=== PATIENT | female | born 1980 | race Caucasian/White ===

== ENCOUNTER 2018-03-23 11:17 | Outpatient (CLI) | payer BC ==
[2018-03-23 12:43] LABS: Hemoglobin 14.4 g/dL (12.0-16.0); Mean Corpuscular HGB CONC 33.7 g/dL (32.0-36.0); Mean Corpuscular Hemoglobin 29.6 pg (27.0-31.0); Mean Corpuscular Volume 87.9 fL (78.0-98.0); Mean Platelet Volume 7.6 fL (7.4-10.4); Platelet Count 201 thou/uL (130-400); RBC Distribution Width 12.2 % (11.5-14.5); Red Blood Cell (RBC) Count 4.87 mill/uL (4.20-5.40); White Blood Cell (WBC) Count 6.9 thou/uL (4.8-10.8)
[2018-03-23 13:24] LABS: BHCG - Serum Negative (NEGATIVE); Pregs Control Background? CLEAR/WHITE (CLR/WHITE); Pregs Control Bar Appear? YES (CONTROL BAR)
== END 2018-03-23 11:18 | disposition home or self-care (01) ==
LOC: LABBT 11:17
PROVIDERS: ATTEND Obstetrics & Gynecology
DX: Z01.812 Encounter for preprocedural laboratory examination (principal); N92.0 Excessive and frequent menstruation with regular cycle; N94.6 Dysmenorrhea, unspecified; D25.9 Leiomyoma of uterus, unspecified
CPT/HCPCS: 84703; 85027; 86850; 86900; 86901

== ENCOUNTER 2018-03-23 11:30 | Observation (INO) | payer BC ==
--- NOTE | 2018-03-22 17:15 | HP ---
DATE OF SCHEDULED SURGERY: 03/24/2018 HISTORY OF PRESENT ILLNESS: Ms. Salgado is a 37-year-old white female who has had 2 previous sections and tubal ligation, who has been experiencing very heavy menstrual cycles. She saturates M axi pad in 1 hour during her flow, which can be throughout 7 days that are heavy. She has tried Lyst jorgito with not much improvement. She is taking iron supplement at the time of menses. She also has si gnificant history of pulmonary embolism on oral contraceptives, so this is not a therapeutic option f or her. She is desiring definitive surgical therapy. PAST MEDICAL HISTORY: As noted, pulmonary embolism, on oral contraceptive in the past. She has had previous laparoscopy, infertility and D and C in 2010. 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 She also has history of previous VSD as a child, which resolved. ALLERGIES: CODEINE DERIVATIVES. SOCIAL HISTORY: No tobacco use, nonsmoker. Minimal alcohol consumption. She is . FAMILY HISTORY: Essential hypertension and hyperlipidemia in her father, diabetes in her mother. PHYSICAL EXAMINATION: VITAL SIGNS: Her blood pressure is 134/82, pulse 84 and regular, respirations 16, height 66 inches, weight is 216 with a BMI of 34.9. HEENT: Within normal limits. CHEST: Clear to auscultation. HEART: Regular rate and rhythm. S1, S2 heart sounds. No murmurs, rubs or gallops. ABDOMEN: Soft, nontender, nondistended with no palpable masses. Well-healed Pfannenstiel incision s ite noted. PELVIC: Vulva and vagina had no lesions. Cervix had no lesions. Pap smear performed on 01/05/2018 was negative and HPV was also negative for high risk viruses. Uterus was approximately 8 to 10 weeks size. Adnexa were nontender with no masses. Pelvic ultrasound previously performed showed uterus m easuring 9 x 5.5 cm with anterior fibroid measuring 3.3 x 3 cm. Endometrial lining was 11.8 mm. No adnexal masses were noted. ASSESSMENT: This is a 37-year-old white female, G3, P3, with prior C-sections x2 and tubal ligation, who was having menorrhagia unresponsive to medical management including Lysteda, known uterine fibro ids. She is desiring definitive surgical therapy. She is scheduled to undergo robotic total laparos copic hysterectomy with removal of the residual fallopian tube segments on 03/24/2018. Risks and albina efits of the procedure were discussed in detail. She is set for surgery.
[2018-03-23 11:37] VITALS: BMI 34.7
[2018-03-24] MEDS ORDERED: CEFAZOLIN/Water 2 GM/20 ML SYRINGE ONE (06:08)
[2018-03-24] MEDS ORDERED: Famotidine/PF 20 mg/2ml Vial ONE (06:09)
[2018-03-24] MEDS ORDERED: Famotidine 40 MG/4 ML VIAL IV SCH (06:15)
[2018-03-24] MEDS ORDERED: CeleCOXIB 100 MG CAP PO SCH (06:15)
[2018-03-24] MEDS ORDERED: Gabapentin 300 MG CAP ONE (06:15)
[2018-03-24] MEDS ORDERED: Lidocaine 2% Jelly 5 ML TUBE ONE (06:18)
[2018-03-24] MEDS ORDERED: Fentanyl 250 MCG/5 ML VIAL ONE (06:18)
[2018-03-24] MEDS ORDERED: Midazolam HCl 2 mg/2 ml Vial ONE (06:18)
[2018-03-24] MEDS ORDERED: Bupivacaine HCl 0.5%/Epinephrine 1:200,000/PF 30 ml Vial ONE (06:29)
[2018-03-24] MEDS ORDERED: Sodium Chloride 0.9% 0 ML ONE (06:45)
[2018-03-24] MEDS ORDERED: Levofloxacin 500 mg/D5W 100 ml Premix Bag ONE (06:45)
[2018-03-24] MEDS ORDERED: Scopolamine 1.5 mg/72 hour Patch ONE (06:46)
[2018-03-24] MEDS ORDERED: HYDROmorphone 2 MG/ML VIAL SLOW IVP PRN (08:02)
[2018-03-24] MEDS ORDERED: Promethazine HCl 25 MG/ML VIAL IM PRN ×2 (08:02→10:58)
[2018-03-24] MEDS ORDERED: Ondansetron HCl/PF 4 MG/2 ML Vial IVP PRN ×2 (08:02→10:58)
[2018-03-24] MEDS ORDERED: Promethazine HCl 25 MG/ML VIAL SLOW IVP PRN (08:02)
[2018-03-24] MEDS ORDERED: Fentanyl 100 MCG/2 ML VIAL ONE ×2 (09:30→10:11)
--- NOTE | 2018-03-24 10:22 | OP ---
DATE OF PROCEDURE: 03/24/2018 PREOPERATIVE DIAGNOSES: 1. A 37-year-old white female, A1, with prior x2 and tubal ligation with menorrhagia and dysmenorrhea, unresponsive to medical management. 2. Uterine fibroids. 3. Desires definitive surgical therapy. POSTOPERATIVE DIAGNOSES: 1. A 37-year-old white female, A1, with prior x2 and tubal ligation with menorrhagia and dysmenorrhea, unresponsive, medical management. 2. Uterine fibroids. 3. Desires definitive surgical therapy. PROCEDURE PERFORMED: Robotic total laparoscopic hysterectomy and removal residual fallopian tube seg ments. SURGEON: Irma Roldan M.D. RANGE MANAGER: Kadi Shelton M.D. ANESTHESIA: General endotracheal. ESTIMATED BLOOD LOSS: Less than 50 mL. COMPLICATIONS: None. COUNTS: Correct x2. ANTIBIOTICS: Two grams Ancef power generation engineer to the operating room. PATHOLOGY: Uterus, cervix, and bilateral tubal segments. FINDINGS: 1. Normal appearing bilateral ovaries and residual tubal segments. 2. Eight week size uterus with small uterine fibroids noted intramural. 3. Bladder was watertight to fluid distention of over 300 mL post-procedure. 4. Bilateral ureteral peristalsis visualized post procedure. DISPOSITION: To the recovery room stable. DESCRIPTION OF OPERATIVE PROCEDURE: The patient previously received informed consent in regards to pasquale high. She was taken back to the operating room where she received a general endotracheal anestheti c agent without complications. She was placed in the dorsal lithotomy position with the use of Jose stirrups and draped in usual sterile fashion. Gerard catheter was placed. A sidearm speculum was pl aced in the vagina. Anterior lip of cervix was grasped with a single-tooth tenaculum. Uterus sounde d to 9 cm. A size 8 cm SANJEEV uterine manipulator with a 4.0 cm cervical cup was then placed. The ten aculum and speculum were removed. Attention was then turned to the abdomen where perspective trocar sites were infiltrated with 0.5% Marcaine with epinephrine. A 12 mm supraumbilical incision was made . Veress needle was entered the peritoneal cavity. Patient pressure was noted to be less than 5 mm. Abdomen was insufflated to a patient pressure of 15, approximately 4-1/2 liters of carbon dioxide g as. Veress needle was then removed. A size 12 mm trocar was then placed in the supraumbilical incis ion and then the robotic laparoscope was introduced through the trocar sleeve confirming proper entry . Additional bilateral lower quadrant 8 mm robotic trocars were placed under laparoscopic guidance a long with a right upper quadrant 11 mm restaurant assistant port. The patient was placed in deep Trendelenburg position and then the robot was docked in usual fashion. I then broke scrub and proceeded to carry o ut the surgery from the operative console were my assistants remained at the bedside. The uterus was elevated from the pelvis by my restaurant assistant. The left fallopian tube fimbriated end was grasped by my restaurant assistant with an atraumatic grasper. I then coagulated under the mesosalpinx of the tubal segment w ith bipolar fenestrated cautery and then this was excised with monopolar scissors. The tubal segment was removed to the upper quadrant restaurant assistant port. The left uterine ovarian ligament was isolated, w as coagulated with bipolar fenestrated cautery, was transected with monopolar scissors. Serial coagu lation of broad ligament, hugging close uterine specimen was carried out until the left round ligamen t was reached. It was coagulated and then transected with monopolar scissors. The anterior leaf of the broad ligament was entered and the vesicouterine peritoneum was then incised in a layering techni que under direct visualization dropping the bladder atraumatically past the cervical vaginal cuff whi ch was easily recognizable by the indentation of the cervical cup manipulator. The left uterine vess els were skeletonized and then coagulated in the internal cervical os region. This was then carried out again on similar fashion on the patient's right side of the uterus where the fimbriated end of th e right tube was grasped and elevated by the restaurant assistant. It was coagulated in the mesosalpinx region with bipolar fenestrated cautery and tubal segment was excised and removed. The right uteroovarian l igament was coagulated and transected. Serial coagulation of broad ligament, hugging close to uterus again was coagulated and transected again until the right round ligament was reached. It was coagul ated and transected with monopolar scissors. Again, in a layering technique the vesicouterine perito neum of the bladder was then incised atraumatically, dropping the bladder, both sharply and bluntly p ast the cervical vaginal cuff. Intermittently, the bladder was distended by my restaurant assistant via the Fol ey catheter to ascertain the exact position of the bladder to keep this atraumatically from the surgi mehran dissection. Again, the uterine vessels on the right side were skeletonized and coagulated actuarial internship al cervical os region. Prior to the anterior colpotomy, the bladder again was distended and noted to be well past the intended anterior colpotomy incision site. The monopolar scissors were then utiliz ed to complete the anterior colpotomy from the 12 to 3 and 12 to 9 o'clock position. Again, the vess els at the 3 and 9 o'clock position were bipolar fenestrated cauterized and then a posterior colpotom y was completed from 6-9 and 6-3 in likewise fashion. The uterine specimen was then delivered in the vaginal vault. The vaginal cuff was then coagulated any remaining active bleeding with the bipolar fenestrated cautery. The monopolar scissor was switched for omega needle wrecking car driver. My restaurant assistant passe d a Stratafix suture through the restaurant assistant port and the vaginal cuff was then closed in full thicknes s closure starting at the right angle, incorporating back towards the left angle back towards the mid line with good hemostasis noted. The excess suture and needle was then cut and then removed intact. The pelvis again at this time, was irrigated and suctioned. All pedicle sites were inspected. Hemo stasis was confirmed. The bladder was noted to be watertight again, over 300 mL distension. Bilater al ureteral peristalsis was visualized and the ureter was below the operative sites noted. The exces s carbon dioxide gas was then released from the abdomen after the robot had been undocked. The troca r sleeves were removed. A deep stitch of 0 Vicryl in a bczjca-cd-yexsu stitch fashion was placed in the umbilical fascia closing the defect and the remainder of the trocar sites were closed with 4-0 Mo nocryl suture in subcuticular fashion with Dermabond. The vaginal vault was checked with a sponge st ick and hemostasis vaginal cuff vaginally was confirmed. The patient was awakened from anesthesia an d transferred to recovery in stable condition.
[2018-03-24] MEDS ORDERED: Simethicone Chewable 80 MG TAB PO PRN (10:58)
[2018-03-24] MEDS ORDERED: Bisacodyl 10 MG SUPP PR PRN (10:58)
[2018-03-24] MEDS ORDERED: diphenhydrAMINE 25 MG CAP PO PRN (10:58)
[2018-03-24] MEDS ORDERED: Zolpidem Tartrate 5 MG TAB PO PRN (10:58)
[2018-03-24] MEDS ORDERED: Morphine 10 MG/ML VIAL SLOW IVP PRN (10:58)
[2018-03-24] MEDS ORDERED: traMADol HCl 50 MG TAB PO PRN (10:58)
[2018-03-24] MEDS ORDERED: Glycopyrrolate 0.2 MG/ML 5 ML SYRINGE ONE (11:21)
[2018-03-24] MEDS ORDERED: Dexamethasone 20 MG/5 ML VIAL ONE (11:21)
[2018-03-24] MEDS ORDERED: Lidocaine 1% PF 5 ML VIAL ONE (11:21)
[2018-03-24] MEDS ORDERED: Ondansetron HCl/PF 4 MG/2 ML Vial ONE (11:21)
[2018-03-24] MEDS ORDERED: PROPOFOL 200 MG/20 ML VIAL ONE (11:21)
[2018-03-24] MEDS: traMADol HCl 50 MG TAB PO PRN (15:00)
[2018-03-24] MEDS: Acetaminophen 1,000 MG in Premix Bag 1 BAG IVPB SCH ×3 (15:59→21:56)
[2018-03-24] MEDS: Ketorolac Tromethamine 30 MG/ML VIAL IVP SCH ×3 (16:00→21:54)
[2018-03-24] MEDS: Lactated Ringer's 1,000 ML IV SCH ×2 (16:00→21:37)
[2018-03-25] MEDS: traMADol HCl 50 MG TAB PO PRN ×2 (04:27→10:08)
[2018-03-25] MEDS: Lactated Ringer's 1,000 ML IV SCH ×2 (05:29→11:05)
[2018-03-25] MEDS: Ketorolac Tromethamine 30 MG/ML VIAL IVP SCH ×2 (05:29→11:04)
[2018-03-25] MEDS: Acetaminophen 1,000 MG in Premix Bag 1 BAG IVPB SCH ×2 (05:30→11:04)
[2018-03-25 06:08] LABS: Hemoglobin 12.9 g/dL (12.0-16.0); Mean Corpuscular HGB CONC 32.1 g/dL (32.0-36.0); Mean Corpuscular Hemoglobin 29.2 pg (27.0-31.0); Mean Corpuscular Volume 90.9 fL (78.0-98.0); Mean Platelet Volume 8.6 fL (7.4-10.4); Platelet Count 176 thou/uL (130-400); RBC Distribution Width 12.3 % (11.5-14.5); Red Blood Cell (RBC) Count 4.42 mill/uL (4.20-5.40); White Blood Cell (WBC) Count 11.7 thou/uL (4.8-10.8)
[2018-03-25 08:31] VITALS: BP 127/68; TEMP 97.6
--- NOTE | 2018-03-25 09:38 | PDOC.EVN ---
Event Note - Event Note Event Note: Good pain control. No Nausea. Ambulating and voiding well. Tolerating diet. O:AFVSS. HCT 40%. good urine output. ABD: soft/non distended. Trochar sites clean /dry/intact. perineum is dry. extremities are non tender. A/P post op day 1 from robotic tlh. Doing well. D/c home with f/u as scheduled in 2 and 6 weeks.
--- NOTE | 2018-03-25 09:57 | DIS ---
DIAGNOSES: 1. Menorrhagia. 2. Dysmenorrhea. 3. Uterine fibroids. PROCEDURE PERFORMED: Robotic TLH and bilateral salpingectomy. SUMMARY OF HOSPITAL COURSE: Ms. Salgado is a 37-year-old white female, prior x2 and tubal ligation who was having progressive severe dysmenorrhea and menorrhagia unresponsive to medical manag ement. She has used Lysteda and nonsteroidals. She has contraindication for oral contraceptive use due to previous pulmonary embolism that occurred several years ago while on oral contraceptives. She underwent an uncomplicated robotic hysterectomy on 03/24/2018. Minimal blood loss. She has done well postoperatively and began ambulating and voiding without difficulty the day of surgery. Pain c ontrol was satisfactory and her hematocrit this morning was 40%. She is tolerating regular diet, voi ding without difficulty, and having good pain control with nonsteroidals. Her pathology is pending at time of this dictation. She will be discharged home this morning with followup in 2 and 6 weeks and prescription for Tramadol 50 mg q.6 hours p.r.n. pain was given and was also instructed to use over- the-counter ibuprofen and Tylenol.
== END 2018-03-25 11:25 | disposition home or self-care (01) ==
LOC: SURG A 03-24 05:48 → INTOOBSV 03-24 05:48 → 3SE 03-24 10:31
PROVIDERS: ADMIT Obstetrics & Gynecology; ATTEND Obstetrics & Gynecology
PROC: 0UT94ZZ Resection of Uterus, Percutaneous Endoscopic Approach (ICD-10-PCS; principal; 2018-03-24)
PROC: 0UT74ZZ Resection of Bilateral Fallopian Tubes, Percutaneous Endoscopic Approach (ICD-10-PCS; 2018-03-24)
DX: N88.8 Other specified noninflammatory disorders of cervix uteri (principal); N80.0 Endometriosis of uterus; N83.8 Other noninflammatory disorders of ovary, fallopian tube and broad ligament; D25.9 Leiomyoma of uterus, unspecified; Z98.51 Tubal ligation status; Z98.891 History of uterine scar from previous surgery; Z86.711 Personal history of pulmonary embolism; Z79.899 Other long term (current) drug therapy; Z88.5 Allergy status to narcotic agent
CPT/HCPCS: 36415; 85027; 88307; 96361; 96374; 96375; 96376; G0378; J0131; J0670; J1100; J1885; J1956; J2001; J2250; J2405; J2704; J3010; J7050; S0028

== ENCOUNTER 2020-03-20 08:26 | Outpatient (CLI) | payer BC ==
--- NOTE | 2020-03-20 09:11 | ULT ---
EXAM: US Breast Limited Lt PROVIDED CLINICAL HISTORY: Abnormal mammogram COMPARISON: Concurrently performed diagnostic mammogram FINDINGS: Limited sonographic interrogation of the lower inner aspect of the left breast was performed in the r egion of mammographic concern. There is a circumscribed focus of heterogeneously diminished echogenicity having appearance suggesting a cluster of cysts at the 7:00 position of the left breast. This measures about 7 mm and likely corresponds to the mammographic finding. IMPRESSION: Probable cluster of cysts demonstrated at the 7:00 position of the left breast, felt to correspond to the mammographic finding. Six-month follow-up ultrasound and mammogram recommended. BI-RADS 3 -- probably benign, 6-month follow-up
--- NOTE | 2020-03-20 09:11 | MMO ---
Left Breast MAMMO Unilat Diag DDI LT+MEGHAN. CLINICAL HISTORY: Patient is 39 years old and is seen for additional evaluation requested at current screening. The patient has the following family history of breast cancer: mother, at age 58. The patient has no personal history of cancer. VIEWS: The views performed were: left craniocaudal spot compression with tomosynthesis; left mediolateral oblique spot compression with tomosynthesis; and left mediolateral with tomosynthesis. FILMS COMPARED: The present examination has been compared to prior imaging studies performed at [facility] on 01/18/2019 and 03/01/2020, and at [facility] on 03/20/2020. This study has been interpreted with the assistance of computer-aided detection. MAMMOGRAM FINDINGS: The breast is heterogeneously dense, which could obscure a lesion on mammography. There is a focal asymmetry seen in the lower-inner region of the left breast. Sonography of this region demonstrates a probable cluster of cysts. IMPRESSION: FOCAL ASYMMETRY IN THE LEFT BREAST IS PROBABLY BENIGN. FOLLOW-UP IN 6 MONTHS IS RECOMMENDED. THE RESULTS OF THIS EXAM WERE SENT TO THE PATIENT. ACR BI-RADS Category 3 - Probably benign finding - short interval follow-up suggested. [facility] will notify the patient of the need for additional imaging services. MAMMOGRAPHY NOTE: 1. A negative mammogram report should not delay a biopsy if a dominant of clinically suspicious mass is present. 2. Approximately 10% to 15% of breast cancers are not detected by mammography. 3. Adenosis and dense breasts may obscure an underlying neoplasm. Reported by: SHAY HERRERA MD Electonically Signed: [id number]
== END 2020-03-20 08:27 | disposition home or self-care (01) ==
LOC: BICMAMMO 08:26
PROVIDERS: ATTEND Physician Assistant
DX: R92.8 Other abnormal and inconclusive findings on diagnostic imaging of breast (principal); N64.89 Other specified disorders of breast
CPT/HCPCS: G0279

== ENCOUNTER 2021-07-02 12:51 | Outpatient (CLI) | payer BC | END 2021-07-02 12:52 | disposition home or self-care (01) | LOC: BICMAMMO 12:51 | PROVIDERS: ATTEND Physician Assistant | DX: N63.20 Unspecified lump in the left breast, unspecified quadrant (principal); N60.02 Solitary cyst of left breast | CPT/HCPCS: 77066; G0279 ==